=== PATIENT | female | born 1955 | race Caucasian/White ===

== ENCOUNTER 2021-08-19 07:53 | Inpatient (IN) | payer OTHER ==
[2021-08-19 08:38] LABS: Absolute Lymphocytes (CBC) 1.3 K/uL (0.7-4.9); Basophils % 0.2 % (0-1.3); Lymphocytes % 29.4 % (15.3-44.8); MPV 7.7 fL (7.6-11.3); RBC Red Blood Cell Count 4.71 M/uL (3.86-4.86)
[2021-08-19] MEDS ORDERED: NA CHLORIDE 0.9% 1,000 ML ONE (08:50)
--- NOTE | 2021-08-19 08:50 | RAD REPORT ---
EXAM DESCRIPTION: CT - Head C Spine Mpr Wo Con - 08/19/2021 8:38 am CLINICAL HISTORY: Head and neck injury status post fall. Head and neck pain COMPARISON: None. TECHNIQUE: Computed axial tomography of the head and cervical spine was obtained. Sagittal and coronal reconstruction was performed. All CT scans are performed using dose optimization technique as appropriate and may include automated exposure control or mA/KV adjustment according to patient size. FINDINGS: Left frontal scalp swelling. Hyperostosis frontalis interna is present. An intracranial bleed is not seen. The ventricles are normal in caliber. An extra-axial fluid collect ion is not noted.Fluid within the visualized sinuses and mastoids is not seen A cervical fracture is not visualized. No dislocation is noted. IMPRESSION: No acute intracranial abnormality is seen. A cervical fracture is not visualized. If the patient continues to have symptoms to suggest intracra nial /spinal cord pathology then MRI would be recommended
--- NOTE | 2021-08-19 08:52 | RAD REPORT ---
EXAM DESCRIPTION: Jenniffer Single View08/19/2021 8:46 am CLINICAL HISTORY: Cough COMPARISON: none FINDINGS: The right hemidiaphragm is elevated. The lungs appear clear of acute infiltrate. The heart is normal size
[2021-08-19 08:54] LABS: ALT/SGPT 30 U/L (12-78); AST/SGOT 33 U/L (15-37); Albumin 3.2 g/dL (3.4-5.0); Alkaline Phosphatase 55 U/L (45-117); BUN Blood Urea Nitrogen 12 mg/dL (7-18); Bicarbonate 24 mmol/L (21-32); Bilirubin Direct 0.1 mg/dL (0-0.2); Bilirubin Total 0.4 mg/dL (0.2-1.0); Glucose Level 137 mg/dL (74-106); NT PRO-BNP 137 pg/mL (<125); Potassium 3.8 mmol/L (3.5-5.1); Protein, Total 7.5 g/dL (6.4-8.2); Sodium Level 140 mmol/L (136-145); Troponin (Emerg Dept Use Only) < 0.02 ng/mL (0.0-0.045)
[2021-08-19 09:01] LABS: Protime INR 1.02
[2021-08-19] MEDS ORDERED: METOPROLOL TARTRATE 5 MG/5 ML INJ IV ONE (09:21)
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
--- NOTE | 2021-08-19 10:42 | EDPHYS ---
Physician Documentation [facility] Name: Rick Awan Age: 65 yrs Sex: Female : 1955 Arrival Date: 08/19/2021 Time: 07:56 Bed 18 Private MD: ED Physician Roula Cárdenas HPI: 08/19 10:27 This 65 yrs old Female presents to ER via Wheelchair with complaints of jr8 Syncope, Head Injury-Adult. 10:27 The patient has experienced syncope, lost consciousness. Onset: The symptoms/episode jr8 began/occurred acutely, today. Duration: This was a single episode, that lasted 30 second(s). Context: the episode(s) was witnessed, by no one, occurred at home. Associated injury: Head/face: contusion. Associated signs and symptoms: Pertinent positives: palpitations. Current symptoms: headache. The patient has not experienced similar symptoms in the past. The patient has not recently seen a physician. This is a 65-year-old female patient with a history of diabetes and atrial fibrillation that presented to the emergency room after sustaining a syncopal episode while at home. Patient stated that she woke up feeling okay this morning and had gone to the bathroom. While walking to the bathroom started to feel slightly lightheaded. Had sat on the toilet and urinated and then abruptly passed out. Patient stated that she woke up on the floor with pain to the left head and neck. Patient at that point noted that her heart rate was markedly elevated. Patient this past January had recently had a cardiac ablation for her atrial fibrillation was put on flecainide. Since then had been doing well up until today.. Historical: - Allergies: 08:13 No Known Allergies; aa5 - PMHx: 08:13 Atrial fibrillation; Diabetes mellitus; aa5 - PSHx: 08:13 Heart Ablation January 2021; aa5 - Immunization history:: Client reports having NOT received the Covid vaccine. - Social history:: Smoking status: Patient denies any tobacco usage or history of. ROS: 10:27 Eyes: Negative for injury, pain, redness, and discharge, ENT: Negative for injury, jr8 pain, and discharge, Neck: Negative for injury, pain, and swelling, Respiratory: Negative for shortness of breath, cough, wheezing, and pleuritic chest pain, Abdomen/GI: Negative for abdominal pain, nausea, vomiting, diarrhea, and constipation, Back: Negative for injury and pain, MS/Extremity: Negative for injury and deformity, Skin: Negative for injury, rash, and discoloration. 10:27 Neck: Positive for pain with movement, pain at rest, Negative for bony tenderness. 10:27 Cardiovascular: Positive for palpitations. 10:27 Neuro: Positive for headache, syncope. Exam: 10:27 Eyes: Pupils equal round and reactive to light, extra-ocular motions intact. Lids and jr8 lashes normal. Conjunctiva and sclera are non-icteric and not injected. Cornea within normal limits. Periorbital areas with no swelling, redness, or edema. ENT: Nares patent. No nasal discharge, no septal abnormalities noted. Tympanic membranes are normal and external auditory canals are clear. Oropharynx with no redness, swelling, or masses, exudates, or evidence of obstruction, uvula midline. Mucous membranes moist. Respiratory: Lungs have equal breath sounds bilaterally, clear to auscultation and percussion. No rales, rhonchi or wheezes noted. No increased work of breathing, no retractions or nasal flaring. Abdomen/GI: Soft, non-tender, with normal bowel sounds. No distension or tympany. No guarding or rebound. No evidence of tenderness throughout. Back: No spinal tenderness. No costovertebral tenderness. Full range of motion. Skin: Warm, dry with normal turgor. Normal color with no rashes, no lesions, and no evidence of cellulitis. MS/ Extremity: Pulses equal, no cyanosis. Neurovascular intact. Full, normal range of motion. Neuro: Awake and alert, GCS 15, oriented to person, place, time, and situation. Cranial nerves II-XII grossly intact. Motor strength 5/5 in all extremities. Sensory grossly intact. Cerebellar exam normal. 10:27 Head/face: Patient has ecchymosis and hematoma noted to the left forehead. Mild tenderness to palpation. No depression noted.. 10:27 Neck: External neck: is normal, C-spine: appears grossly normal, no vertebral tenderness, no crepitus, Thyroid: appears normal, Trachea: is midline with no obvious abnormalities, ROM/movement: pain, that is mild, with any movement, limited range of motion, is not appreciated, Meningeal signs: are not present, nuchal rigidity, is not appreciated, Lymph nodes: no appreciated lymphadenopathy. 10:27 Cardiovascular: Rate: tachycardic, Rhythm: irregularly irregular, Pulses: Pulses are 2+ in right radial artery and left radial artery. Heart sounds: normal, normal S1and S2, no S3 or S4, no murmur, no rub, no gallop, Edema: is not appreciated, JVD: is not appreciated. Vital Signs: 08:03 BP 100 / 65; Pulse 150; Resp 18 S; Temp 98.3(O); Pulse Ox 95% on R/A; Weight 97.07 kg aa5 (R); Height 5 ft. 4 in. (162.56 cm) (R); 08:38 BP 100 / 65; Pulse 142; Resp 20; Temp 98.4(O); Pulse Ox 95% on R/A; sl2 09:04 BP 108 / 66; Pulse 132; Resp 18; Pulse Ox 93% on R/A; sl2 09:57 BP 89 / 67; Pulse 135; Resp 18; Temp 98.2(O); Pulse Ox 98% on 2 lpm NC; sl2 10:45 BP 126 / 58; Pulse 124; Resp 18; Temp 98(O); Pulse Ox 98% on 2 lpm NC; sl2 11:30 BP 122 / 56; Pulse 128; Resp 18; Temp 98; Pulse Ox 97% on 2 lpm NC; sl2 12:30 BP 116 / 62; Pulse 122; Resp 18; Pulse Ox 97% on 2 lpm NC; sl2 13:55 BP 108 / 58; Pulse 119; Resp 18; Temp 98.4(O); Pulse Ox 97% on 2 lpm NC; sl2 08:03 Body Mass Index 36.73 (97.07 kg, 162.56 cm) aa5 MDM: 08:05 Patient medically screened. [facility] 10:27 Data reviewed: vital signs, nurses notes, lab test result(s), EKG, radiologic studies, jr CT scan, plain films. Data interpreted: Pulse oximetry: on room air is 98 %. Interpretation: normal. Counseling: I had a detailed discussion with the patient and/or guardian regarding: the historical points, exam findings, and any diagnostic results supporting the discharge/admit diagnosis, lab results, radiology results, the need for further work-up and treatment in the hospital. 08/19 08:13 Order name: Basic Metabolic Panel; Complete Time: 09:13 08/19 08:13 Order name: CBC with Diff; Complete Time: 09:08/19 08:13 Order name: LFT's; Complete Time: 09:13 08/19 08:13 Order name: Magnesium; Complete Time: 09:08/19 08:13 Order name: NT PRO-BNP; Complete Time: 09:08/19 08:13 Order name: PT-INR; Complete Time: 09:08/19 08:13 Order name: Troponin (emerg Dept Use Only); Complete Time: 09:08/19 08:13 Order name: XRAY Chest (1 view); Complete Time: 09:13 08/19 08:13 Order name: EKG; Complete Time: 08:14 08/19 08:14 Order name: CT Head C Spine; Complete Time: 09:08/19 11:17 Order name: SARS-COV-2 RT PCR (Document "Date of Onset" if Symptomatic); Complete Time: 13:26 08/19 08:13 Order name: Cardiac monitoring; Complete Time: 08:08/19 08:13 Order name: EKG - Nurse/Tech; Complete Time: 08:18 08/19 08:13 Order name: IV Saline Lock; Complete Time: 08:29 08/19 08:13 Order name: Labs collected and sent; Complete Time: 08:08/19 08:13 Order name: O2 Per Protocol; Complete Time: 08:30 08/19 08:13 Order name: O2 Sat Monitoring; Complete Time: 08: Administered Medications: 08:51 Drug: NS 0.9% 1000 ml Route: IV; Rate: 1000 ml; Site: left antecubital; sl2 09:03 Follow up: Response: No adverse reaction sl2 10:47 Follow up: IV Status: Completed infusion; IV Intake: 1000ml 2 09:24 Drug: Metoprolol 5 mg Route: IVP; Site: left antecubital; sl2 10:46 Follow up: Response: No adverse reaction; Marked relief of symptoms sl2 10:55 Drug: Lovenox (enoxaparin) 1 mg/kg Route: Sub-Q; Site: right lower abdomen; sl2 10:56 Drug: Lovenox (enoxaparin) 1 mg/kg Route: Sub-Q; Site: right lower abdomen; sl2 11:50 Follow up: Response: No adverse reaction sl2 Disposition: 08/20 08:40 Co-signature as Attending Physician, Roula Cárdenas MD I agree with the assessment and sp3 plan of care. Disposition Summary: 08/19/21 10:41 Hospitalization Ordered Hospitalization Status: Inpatient Admission jr8 Provider: Diogenes Hamilton jr8 Condition: Stable jr8 Problem: new jr8 Symptoms: have improved jr8 Bed/Room Type: Standard [facility] Location: Intensive Care Unit(08/19/21 13:17) dw Room Assignment: 6-(08/19/21 13:17) dw Diagnosis - Syncope jr8 - Persistent atrial fibrillation - with RVR jr8 Forms: - Medication Reconciliation Form jr8 - SBAR form jr8 Signatures: Dispatcher [employer] Hailey Shankar RN RN dw Cathi Giraldo, RN RN aa5 Terry Hines PA PA jr8 Roula Cárdenas MD MD sp3 Sophie Nelson RN RN sl2 Corrections: (The following items were deleted from the chart) 08/19 13:17 10:41 Telemetry/MedSurg (Inpatient) jr8 13:17 10:41 jr8 dw
[2021-08-19] MEDS ORDERED: ENOXAPARIN 100 MG/ML SYR SQ ONE (10:52)
--- NOTE | 2021-08-19 13:05 | P.HP ---
Certification for Inpatient Patient admitted to: Inpatient With expected LOS: >2 Midnights Practitioner: I am a practitioner with admitting privileges, knowledge of patient current condition, hospital course, and medical plan of care. Services: Services provided to patient in accordance with Admission requirements found in Title 42 Section 412.3 of the Code of Federal Regulations Patient History Date of Service: 08/19/21 Reason for admission: Syncope History of Present Illness: 65-year-old woman with a history of diabetes atrial fibrillation, status post cardiac ablation about 6 months ago fell while walking to her bathroom. Patient noted on her wrist watch she was having rapid atrial fibrillation with heart rate up to 160. She denied any chest pain. She presented to the ED where her heart rate was up to 150 on arrival. Systolic blood pressure in the low 100s. Patient reports a history of borderline low blood pressure. Her heart rate responded partially to a liter of IV normal saline bolus and metoprolol which brought her heart rate down to 120. EKG demonstrated rapid atrial fibrillation, no ischemic changes. No significant electrolyte abnormalities. Patient also tested positive for COVID-19 a couple of days ago. She reported brief fever episode prior to going for the Covid test. Chest x-ray unremarkable. Patient is admitted for further management. - Past Medical/Surgical History -: Chronic atrial fibrillation -: Diabetes mellitus type 2 -: Cardiac ablation - Family History Sister -: Heart disease - Social History Smoking Status: Never smoker Alcohol use: No CD- Drugs: No Place of Residence: Home Review of Systems Other: Patient denied any cough, denied any shortness of breath. She denied any abdominal pain or nausea or vomiting or diaphoresis. Except as documented, all other systems reviewed and negative. Physical Examination - Physical Exam General: Alert, In no apparent distress, Oriented x3 HEENT: Normocephalic, PERRLA, Mucous membr. moist/pink, Sclerae nonicteric Neck: Supple, JVD not distended Respiratory: Clear to auscultation bilaterally, Normal air movement Cardiovascular: No edema, Regular rate/rhythm, Normal S1 S2 Gastrointestinal: Normal bowel sounds, Soft and benign, Non-distended, No tenderness Musculoskeletal: No swelling Integumentary: No rashes, No erythema Neurological: Normal speech, Normal strength at 5/5 x4 extr, Cranial nerves 3-12 intact - Studies Laboratory Data (last 24 hrs) 08/19/21 08:20: PT 11.7, INR 1.02 08/19/21 08:20: WBC 4.30, Hgb 14.3, Hct 43.0, Plt Count 158 08/19/21 08:20: Sodium 140, Potassium 3.8, BUN 12, Creatinine 0.69, Glucose 137 H, Magnesium 2.0, Total Bilirubin 0.4, AST 33, ALT 30, Alkaline Phosphatase 55 Assessment and Plan - Problems (Diagnosis) (1) Rapid atrial fibrillation Current Visit: Yes Status: Acute (2) Syncope Current Visit: Yes Status: Acute (3) Diabetes mellitus type 2 in nonobese Current Visit: Yes Status: Acute - Plan Admit patient to the medical floor. Continue supportive measures started in the ED. IV normal saline. Low-dose metoprolol 12.5 mg twice daily for heart rate control if her BP will tolerate it. We will continue home dose flecainide. Cardiology consult. Patient is not anticoagulated for A. fib Monitor and optimize electrolytes. Vitamins and zinc supplementation for COVID-19 infection. DVT prophylaxis with Lovenox. - Advance Directives Does patient have a Living Will: No Does patient have a Durable POA for Healthcare: No
[2021-08-19] MEDS ORDERED: ONDANSETRON 4 MG/2 ML VIAL IV PRN (14:37)
[2021-08-19] MEDS: ENOXAPARIN 40 MG/0.4 ML SQ SCH ×2 (15:00→15:07)
[2021-08-19] MEDS: NA CHLORIDE 0.9% 1,000 ML IV SCH (15:07)
[2021-08-19 16:11] VITALS: O2SAT 95
[2021-08-19] MEDS: INSULIN -REGULAR HUMAN 50 UNIT/0.5 ML ML SQ SCH ×2 (16:28→20:41)
[2021-08-19] MEDS ORDERED: AMIODARONE HCL 150 MG in D5W 100 ML IV STA (16:43)
[2021-08-19] MEDS ORDERED: AMIODARONE HCL 900 MG in Dextrose 5%-Water 482 ML IV SCH (17:00)
[2021-08-19] MEDS ORDERED: METOPROLOL TAR 25 MG TAB PO SCH (18:00)
--- NOTE | 2021-08-19 18:24 | EKG ---
Test Date: 2021-08-19 Test Time: 08:08:21 Management Professionals: COMFORT MEASUREMENT RESULTS: Intervals: Rate: 146 ID: QRSD: [id number] QT: 312 QTc: 486 [place]: P: ID: [id number] T: 20 INTERPRETIVE STATEMENTS: Atrial fibrillation with rapid ventricular response Indeterminate axis Nonspecific ST abnormality Abnormal ECG No previous ECG available for comparison Electronically Signed On 08-19-21 18:23:25 [employer]SEMBLER by Cameron Meier
[2021-08-19] MEDS: ACETAMINOPHEN 500 MG TAB PO PRN (20:36)
[2021-08-19] MEDS: ASCORBIC ACID 500 MG TABLET PO SCH (20:36)
[2021-08-20] MEDS ORDERED: NA CHLORIDE 0.9% 500 ML IV ONE (02:36)
[2021-08-20] MEDS: NA CHLORIDE 0.9% 1,000 ML IV SCH (03:57)
[2021-08-20 04:54] VITALS: BMI 36.8
[2021-08-20 04:58] LABS: Absolute Lymphocytes (CBC) 1.6 K/uL (0.7-4.9); Basophils % 0.3 % (0-1.3); Lymphocytes % 52.1 % (15.3-44.8); RBC Red Blood Cell Count 4.16 M/uL (3.86-4.86)
[2021-08-20 05:26] LABS: Blood Morphology Comment NOT SEEN (NOT SEEN); Platelet Estimate ADEQ
[2021-08-20 05:29] LABS: Albumin 2.5 g/dL (3.4-5.0); Bilirubin Total 0.3 mg/dL (0.2-1.0); C-Reactive Protein 4.9 mg/L (<3.00); Ferritin 63.1 ng/mL (8-388); Magnesium 2.1 mg/dL (1.8-2.4); Phosphorus 2.6 mg/dL (2.5-4.9); Potassium 3.7 mmol/L (3.5-5.1); Protein, Total 6.4 g/dL (6.4-8.2); Thyroid Stimulating Hormone 1.17 uIU/mL (0.360-3.740)
[2021-08-20] MEDS: INSULIN -REGULAR HUMAN 50 UNIT/0.5 ML ML SQ SCH ×2 (07:30→11:30)
[2021-08-20] MEDS: ENOXAPARIN 40 MG/0.4 ML SQ SCH (08:23)
[2021-08-20] MEDS: ASCORBIC ACID 500 MG TABLET PO SCH (08:23)
[2021-08-20] MEDS: ACETAMINOPHEN 500 MG TAB PO PRN (08:23)
[2021-08-20] MEDS ORDERED: VITAMIN D 5,000 UNIT CAP PO SCH (09:00)
[2021-08-20] MEDS ORDERED: ZINC SULFATE 220 MG CAP PO SCH (09:00)
[2021-08-20] MEDS ORDERED: POTASSIUM CL SA 10 MEQ TAB PO ONE (09:00)
[2021-08-20] MEDS ORDERED: FLECAINIDE 100 MG TAB PO SCH (09:00)
--- NOTE | 2021-08-20 12:20 | P.DS ---
Admission Date: 08/19/21 Discharge Date: 08/20/21 Disposition: ROUTINE DISCHARGE Discharge Condition: GOOD Reason for Admission: Syncope Consultations: Cardiology - Dr. Meier Procedures: CXR (08/19): The right hemidiaphragm is elevated. The lungs appear clear of acute infiltrate. The heart is normal size CT head/C-spine (08/19): IMPRESSION: No acute intracranial abnormality is seen. A cervical fracture is not visualized. If the patient continues to have symptoms to suggest intracranial /spinal cord pathology then MRI would be recommended Problem list Atrial fibrillation with RVR, history of atrial fibrillation (s/p ablation ~4-6 months ago) Fall, possible syncope [id number] DM2 Brief History of Present Illness: 65-year-old woman with a history of diabetes atrial fibrillation, status post cardiac ablation about 6 months ago fell while walking to her bathroom. Patient noted on her wrist watch she was having rapid atrial fibrillation with heart rate up to 160. She denied any chest pain. She presented to the ED where her heart rate was up to 150 on arrival. Systolic blood pressure in the low 100s. Patient reports a history of borderline low blood pressure. Her heart rate responded partially to a liter of IV normal saline bolus and metoprolol which brought her heart rate down to 120. EKG demonstrated rapid atrial fibrillation, no ischemic changes. No significant electrolyte abnormalities. Patient also tested positive for COVID-19 a couple of days ago. She reported brief fever episode prior to going for the Covid test. Chest x-ray unremarkable. Patient is admitted for further management. Hospital Course: Patient was started on IV amiodarone and metoprolol. She had quick resolution/cardioversion number A. fib the evening of admission. She continued to do well throughout the night and the following morning. Cardiology was consulted, recommended discontinuation of the amiodarone the following morning. She is to continue her flecainide and low-dose metoprolol. 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 She will continue with her aspirin and discuss further with her chef teacher. She was feeling back to her normal self and wanted to be discharged home. She was deemed stable and subsequently discharged. She did report recent Covid positive testing, was positive here in the ER. She had a normal chest x-ray, did not have any shortness of breath, and did not require any oxygen. She was advised to follow-up with her PCP, return presented to the ER if she does develop respiratory symptoms. Vital Signs/Physical Exam: Temp Pulse Resp BP Pulse Ox 98.6 F 67 24 H 116/81 94 08/20/21 08:00 08/20/21 11:00 08/20/21 11:00 08/20/21 11:00 08/20/21 11:00 General: Alert, In no apparent distress, Oriented x3 HEENT: Sclerae nonicteric Respiratory: Clear to auscultation bilaterally, Normal air movement Cardiovascular: No edema, Regular rate/rhythm, Normal S1 S2 Gastrointestinal: Soft and benign, Non-distended, No tenderness Musculoskeletal: No erythema, No tenderness Integumentary: No rashes, No significant lesion Neurological: Normal speech, Normal affect Laboratory Data at Discharge: WBC 3.00 K/uL (4.3-10.9) L D 08/20/21 04:47 Hgb 12.6 g/dL (12.0-15.0) 08/20/21 04:47 Hct 38.0 % (36.0-45.0) 08/20/21 04:47 Plt Count 128 K/uL (152-406) L 08/20/21 04:47 PT 11.7 SECONDS (9.5-12.5) 08/19/21 08:20 INR 1.02 08/19/21 08:20 Sodium 141 mmol/L (136-145) 08/20/21 04:47 Potassium 3.7 mmol/L (3.5-5.1) 08/20/21 04:47 BUN 10 mg/dL (7-18) 08/20/21 04:47 Creatinine 0.69 mg/dL (0.55-1.3) 08/20/21 04:47 Glucose 99 mg/dL (74-106) 08/20/21 04:47 Phosphorus 2.6 mg/dL (2.5-4.9) 08/20/21 04:47 Magnesium 2.1 mg/dL (1.8-2.4) 08/20/21 04:47 Total Bilirubin 0.3 mg/dL (0.2-1.0) 08/20/21 04:47 AST 22 U/L (15-37) 08/20/21 04:47 ALT 25 U/L (12-78) 08/20/21 04:47 Alkaline Phosphatase 43 U/L (45-117) L 08/20/21 04:47 Troponin I < 0.02 ng/mL (0.0-0.045) 08/19/21 22:45 Triglycerides 97 mg/dL (<150) 08/20/21 04:47 Cholesterol 114 mg/dL (<200) 08/20/21 04:47 HDL Cholesterol 36 mg/dL (40-60) L 08/20/21 04:47 Cholesterol/HDL Ratio 3.17 08/20/21 04:47 Home Medications: Flecainide [Tambocor*] 25 mg PO BID tab 08/20/21 Metoprolol Tartrate [Lopressor*] 12.5 mg PO BID 30 Days #60 tab 08/20/21 New Medications: Metoprolol Tartrate [Lopressor*] 12.5 mg PO BID 30 Days #60 tab Physician Discharge Instructions: PROBLEM: Atrial Fibrillation GOAL: Clear understanding of disease process INSTRUCTIONS: You were found to be in rapid afib with your heart rate in the 130s. You were started on IV amiodarone and your heart rhythm converted back to sinus quickly. Cardiology, Dr. Meier was consulted. Recommended stopping amiodarone, resuming your flecainide and low dose metoprolol. The metoprolol may further lower your blood pressure, which is already on the lower end of normal to begin with. Recommend checking your blood pressure at home daily. Follow up with your PCP in 3-5 days. Follow up with your Java Lead Developer in the next 1-2 weeks. You were also noted to be COVID positive, with a clear chest x-ray. If you have worsening symptoms, recommend follow up with your PCP or return to ER. If you have any questions regarding hospital stay, feel free to call . Diet: AHA Activity: Ad real DME DME: Date Ordered: Name of Company: [employer] Services Needed: None Name of Company: Date or Referral: IMMUNIZATION Influenza Vaccine Indicated: No Influenza Vaccine Given: Date Given: Pneumonia Vaccine Indicated: No Pneumonia Vaccine Given: Date Given: Diet: AHA Activity: Ad real Followup: NONE,NONE [Primary Care Provider] - Time spent managing pt's care (in minutes): 45
[2021-08-20 15:57] VITALS: BP 123/95
[2021-08-20 15:58] VITALS: TEMP 97.1
== END 2021-08-20 13:40 | disposition home or self-care (01) | DRG 308 ==
LOC: ER 07:53 → ERHOLD 12:16 → 3RD-ICU 14:19
PROVIDERS: ADMIT Internal Medicine; ATTEND Hospitalist
DX: I48.19 Other persistent atrial fibrillation (principal); U07.1 COVID-19; M54.2 Cervicalgia; E11.9 Type 2 diabetes mellitus without complications; Y92.091 Bathroom in other non-institutional residence as the place of occurrence of the external cause; W18.11XA Fall from or off toilet without subsequent striking against object, initial encounter; Z79.82 Long term (current) use of aspirin; Z20.822 Contact with and (suspected) exposure to COVID-19
CPT/HCPCS: 36415; 70450; 71045; 72125; 80048; 80053; 80061; 80076; 82728; 82947; 83036; 83735; 83880; 84100; 84443; 84484; 85025; 85610; 86140; 93005; 96361; 96372; 96374; 99285; J0282; J1650; J7030; J7060; U0003